=== PATIENT | male | born 1945 | race Caucasian/White ===

== ENCOUNTER 2016-06-14 16:44 | Observation (INO) | payer MEDICARE, BC ==
[2016-06-14] MEDS ORDERED: NS 1,000 ML IV ONE ×3 (17:01→18:34)
--- NOTE | 2016-06-14 17:03 | EDPRACDOC ---
- General Information Chief Complaint: Generalized Weakness Stated Complaint: DIZZY Time Seen by Provider: 06/14/16 17:00 Mode Of Arrival: Car Home Medications: Home Medications Alfuzosin [Uroxatral] 10 mg PO DAILY 11/03/14 Bupropion HCl [Bupropion HCl Sr] 150 mg PO .BID SEE COMMENTS 11/03/14 Cholecalciferol (Vitamin D3) [Vitamin D3] 1,000 unit PO DAILY 11/03/14 Clopidogrel Bisulfate [Plavix] 75 mg PO DAILY 11/03/14 Colesevelam HCl [Welchol] 3 tabs PO BID 11/03/14 MetFORMIN (Immediate Release) [GLUCOPHAGE Immed Release] 1,000 mg PO BID Nebivolol HCl [Bystolic] 5 mg PO DAILY 11/03/14 Pantoprazole Sodium [Protonix] 40 mg PO DAILY 11/03/14 Paroxetine HCl 40 mg PO DAILY 11/03/14 Tamsulosin HCl [Flomax] 0.4 mg PO DAILY 11/03/14 Zolpidem Tartrate 10 mg PO HS 11/03/14 Buspirone HCl 15 mg PO BID 06/14/16 Donepezil HCl 5 mg PO .QHS SEE COMMENTS 06/14/16 Duloxetine HCl [Cymbalta] 60 mg PO .DAILY SEE COMMENTS 06/14/16 Allergies/Adverse Reactions: Allergies Allergy/AdvReac Type Severity Reaction Status Date / Time No Known Allergies Allergy Verified 06/14/16 16:53 - History of Present Illness Onset: 3-4 DAYS Exact Onset of Symptoms: Unknown Symptoms Started: Reports: Gradually, At Rest Symptoms Description: Other (INTERMITTENT, AGG BY STANDING) Weakness: Bilateral: Generalized Symptoms: Reports: Weak Symptom Severity: Reports: Unable to performs ADL's Relevant History of: Denies: O, Anemia, CVA, DM, Electrolyte disorder, GI Bleed , [place], TIA Associated signs and symptoms:: Reports: Diarrhea (MILD LATELY), Nausea, Vomiting (X2 TODAY, ASSOC WITH ANOREXIA). Denies: GI Bleed, Chest pain, Fever, Headache ED Past Medical History - History Reviewed Yes Nurses notes reviewed and agree except as marked - Patient Medical History Neurological History: Reports: Cerebrovascular Accident Cardiac History: Reports: Hypertension, HypercholesterolemiaComment Only: Congestive Heart Failure (stents) GI/ History: Reports: Gastroesophageal Reflux Musculoskeletal History: Reports: Arthritis (ANKYLOSIS SPONDYLYSIS (ADVIL ONLY)) Systemic History: Reports: Diabetes Surgical History: Reports: Appendectomy, Tonsillectomy/Adnoidectomy - Social Medical History Smoking Status: Never smoker ETOH: None Substance Abuse: None Lives With: Family Lives In: Home EDM Review of Systems - Review of Systems ROS Negative Except as Marked: Yes All systems reviewed and were negative except as marked Respiratory: No Symptoms Reported. negative: Shortness of Breath Cardiovascular: No Symptoms Reported. negative: Chest Pain, Edema, Orthopnea, Palpitations Gastrointestinal: Nausea, Vomiting. negative: Diarrhea Neurological: Weakness Musculoskeletal: Back (CHRONIC) - Physical Exam Constitutional: No apparent distress, Alert. negative: Distress, Decreased Consciousness, Well appearing (PALE) Oriented to: Time, Person, Place Last recorded Vital Signs: Last Vital Signs Temp 98.6 F 06/14/16 16:49 Pulse 134 H 06/14/16 16:49 Resp 20 06/14/16 16:49 BP 81/51 L 06/14/16 16:49 Pulse Ox 97 06/14/16 16:49 Oxygen Pulse Oxygen Saturation 97 O2 Device Room Air Oxygen Flow Rate Fraction of Inspired Oxygen ( FIO2) - HEENT Head: Normal ( normocephalic) Eye Exam: Normal (PERRL, EOMI, Sclera white). negative: Pale Conjunctiva, Scleral Icterus Oropharynx: Normal (Pharynx:Moist without exudate,Gums-no swelling). negative: Membranes Dry Tympanic Membrane: Normal ENT EAC: Normal TMJ: Normal Nose: No Symptoms Reported (septum midline) Neck: Normal (FROM, trachea at midline) - Respiratory/Cardiovascular Respiratory: Normal - CTA (BBS clear to auscultation without adventitious sounds ) Cardiovascular: Tachycardia. negative: Irregular, Diastolic murmur, Systolic murmur - GI Auscultation: Normal (NABS) Palpation: Normal (Soft,No rebound or guarding, non distended) Tenderness: Non tender Romo's Sign: Negative - Musculoskeletal Back: Normal (Non-Tender) Extremities: Normal (Normal tone, Pulses 2+ No cyanosis or edema, FROM) - Integumentary Skin: Normal, Warm, Dry Lymphatics: Normal (no adenopathy) - Neurologic Memory Impaired: Normal Motor Function: Normal (Normal tone, Pulses 2+ No cyanosis or edema, FROM) Cranial Nerve: Normal (CN II-X11 intact sensation, strength 5/5) Cerebellar: Normal Mood Description: Normal Thought: Coherent Perception: Normal NIH Stroke Scale Re-evaluation 1 Level of Consciousness: Alert LOC- Question: Answers Both Correctly LOC Commands: Both Task Correctly Best Gaze: Normal Visual: No Visual Loss Facial Palsy: Normal Movement Motor Arm LEFT: No Drift Motor Arm RIGHT: No Drift Motor Leg LEFT: No Drift Motor Leg RIGHT: No Drift Limb Ataxia: Absent Sensory: Normal Best Language: No Aphasia Dysarthria: Normal Extinction and Inattention: No Abnormality (Neglect) Score: 0out of42 - Neurologic Orientation: Time, Person, Place Speech: Fluent Coginitive: Normal Affect: Appropriate Thought: Coherent - Coordination Finger to Nose Test: Normal Performance Alternate Nose to Finger Test: Normal Performance Heel on Keyes Test: Normal Performance - Re-evaluation Re-evaluation 3 Re-evaluation Time: 20:18 (IMPROVED BUT STILL WEAK.) General: Pleasant MALE No acute distress. Neuro: Alert Oriented, calm and cooperative HEENT: Normocephalic atraumatic. Sclerae nonicteric. Extraocular movements intact. Oral mucosa pink and moist. Neck: Supple. Nontender. Good range of motion. No masses. Trachea is midline. No cervical adenopathy. Lungs: Clear to auscultation. No rhonchi or wheezing. Heart: Regular rate and rhythm. No murmur. Abdomen: Soft, nontender, nondistended. No hepatosplenomegaly. No abdominal wall defects or masses. No guarding or rebound. Extremities: no cyanosis clubbing or edema. No palpable deformities. Skin: Warm and dry, no rashes - Results 06/14/16 17:15 06/14/16 17:15 - EKG EKG #1 EKG Time: 17:11 -: Yes EKG interpreted by me Rate: bpm: 100 [place]: Normal Rhythm: ST Block: None Hypertrophy: None ST: Normal Comments: PROLONGED QT Comparison: 08/11/08 (NO SIG CHANGE) - Diagnostic Imaging Chest Image interpreted by: Radiologist Patient Name: CHRISSIE LOVETT LOC: ED : 1945 AGE: 71 Order Date:06/14/16 Date of Service: Report # [id number] Ord Physician: Nydia Doty MD Exam # [id number] Emergency Physician: Nydia Doty MD Exam(s): [id number] RAD/DG CHEST 2V CLINICAL DATA: Shortness of breath EXAM: CHEST 2 VIEW COMPARISON: 08/10/2008 chest radiograph. FINDINGS: Stable cardiomediastinal silhouette with normal heart size. No pneumothorax. No pleural effusion. Lungs appear clear, with no acute consolidative airspace disease and no pulmonary edema. IMPRESSION: No active cardiopulmonary disease. Electronically Signed By: Tyrel Barroso M.D. On: 06/14/2016 18:05 Electronically Signed By: Tyrel Barroso MD Electronically Signed Date/Time: 807 Dictate Date/Time: 06/14/161803 Technologist: Kamilah Willson Transcribed By: Benedict Transcribed Date/Time: 06/14/16 180 - Departure Disposition: Admit IP To This Hospital Final Diagnosis: Attacks of weakness, Lactic acidosis Hypotension Qualifiers: Hypotension type: orthostatic hypotension Qualified Code(s): I95.1 - Orthostatic hypotension UTI (urinary tract infection) Qualifiers: Urinary tract infection type: acute cystitis Hematuria presence: without hematuria Qualified Code(s): N30.00 - Acute cystitis without hematuria Instructions: Weakness (General), Urinary Tract Infection in Men (ED), Dysuria Education/Counseling Given To: Patient, Family Member Education/Counseling Given Regarding: Diagnosis, Treatment, Prognosis Referrals: None,No Provider [NonStaff] - One Week Decision to Admit Time: 20:50 Decision to admit date: 06/14/16 Decision to admit: from ED - Physician Consulted Hospitalist Time Called: 20:40 Provider Called: Sammy Etienne Time Rehabilitation Director Returned Call: 20:49
[2016-06-14 17:31] LABS: AUTOMATED BASOPHIL 0.6 % (0-2); AUTOMATED MONOCYTE 7.2 % (3-10); AUTOMATED NEUTROPHIL 76.2 % (45-76); MPV 7.5 fL (7.4-10.4)
[2016-06-14 17:45] LABS: PARTIAL THROMB. TIME 24.7 SEC (22-35); PT-INR 1.1
[2016-06-14 17:49] LABS: BLOOD UREA NITROGEN 12 MG/DL (9-20); CALCULATED OSMOLALITY 269 MOs/Kg (270-290); CHLORIDE 98 mEq/L (98-107); CPK TOTAL WITH POSSIBLE MB 44 IU/L (55-170); GLUCOSE 93 MG/DL (70-99); SODIUM LEVEL 140 mEq/L (137-146); TOTAL PROTEIN 7.4 G/DL (6.3-8.2)
--- NOTE | 2016-06-14 18:07 | DIRPT ---
CLINICAL DATA: Shortness of breath EXAM: CHEST 2 VIEW COMPARISON: 08/10/2008 chest radiograph. FINDINGS: Stable cardiomediastinal silhouette with normal heart size. No pneumothorax. No pleural effusion. Lungs appear clear, with no acute consolidative airspace disease and no pulmonary edema. IMPRESSION: No active cardiopulmonary disease. Electronically Signed By: Tyrel Barroso M.D. On: 06/14/2016 18:05
[2016-06-14 19:01] LABS: RBC/URINE 0-2 (0-2)
[2016-06-14 19:02] LABS: LEUKOCYTES/URINE NEG (NEGATIVE); NITRITE/URINE NEG (NEGATIVE); URINE OCCULT BLOOD NEG (NEG/TRACE)
[2016-06-14] MEDS ORDERED: CEFTRIAXONE 1 GM in D5W 100 ML IV ONE (20:19)
--- NOTE | 2016-06-14 21:04 | HISTPHYS ---
- Chief Complaint not feeling well - History of Present Illness PRIMARY CARE PROVIDER: Dr. Barone HPI: The patient is a 71 yo man with diabetes, ankylosing spondylitis, hypertension who presents with not feeling well. The patient has been dizzy today, especially when he stands up. Almost fell down. He went to urgent care and was told he had to go to the emergency department because his blood pressure was too low. Sudden vomiting yesterday even though he did not feel sick. Some diarrhea (has it chronically). Onset: today. Duration: intermittent. Location: generalized. Character: lightheadedness, feeling like he was going to pass out. Alleviated by: Nothing. Exacerbated by: Nothing. Associated Symptoms: Chronic intermittent headaches. Essential tremor that is gradually worsening. Started last year. Balance off; felt like he was on a rocking ship. Stands still for awhile and it eases off. Difficulty urinating but ran out of medication and has not had it refilled over the last 2 weeks. Has had decreased PO intake because he is not hungry - has been going on for awhile. Weight loss: went from 190 lbs to 170 lbs over the last 2 years. Early satiety. Treatments: none at home except usual medications. - Medical History Cardiac History: Reports: Coronary Artery Disease, Hypertension, Cardiac Catheterization (2 stents, around 2004), HypercholesterolemiaComment Only: Congestive Heart Failure (stents) GI/ History: Reports: Gastroesophageal Reflux (and chronic diarrhea.) Musculoskeletal History: Reports: Arthritis (ANKYLOSING SPONDYLITIS) Systemic History: Reports: Diabetes Neurological History: Reports: Cerebrovascular Accident (2000. No residual effects. Had slurred speech.), Other Has ankylosing spondylitis. Essential tremor that is gradually worsening. Started last year. - Surgical History Reports: Appendectomy, Tonsillectomy/Adnoidectomy - Medictions/Allergies Allergies No Known Allergies Allergy (Verified 06/14/16 16:53) Current Medication List: Reviewed Home Medications Alfuzosin [Uroxatral] 10 mg PO DAILY 11/03/14 Bupropion HCl [Bupropion HCl Sr] 150 mg PO .BID SEE COMMENTS 11/03/14 Cholecalciferol (Vitamin D3) [Vitamin D3] 1,000 unit PO DAILY 11/03/14 Clopidogrel Bisulfate [Plavix] 75 mg PO DAILY 11/03/14 Colesevelam HCl [Welchol] 3 tabs PO BID 11/03/14 MetFORMIN (Immediate Release) [GLUCOPHAGE Immed Release] 1,000 mg PO BID Nebivolol HCl [Bystolic] 5 mg PO DAILY 11/03/14 Pantoprazole Sodium [Protonix] 40 mg PO DAILY 11/03/14 Paroxetine HCl 40 mg PO DAILY 11/03/14 Tamsulosin HCl [Flomax] 0.4 mg PO DAILY 11/03/14 Zolpidem Tartrate 10 mg PO HS 11/03/14 Buspirone HCl 15 mg PO BID 06/14/16 Donepezil HCl 5 mg PO .QHS SEE COMMENTS 06/14/16 Duloxetine HCl [Cymbalta] 60 mg PO .DAILY SEE COMMENTS 06/14/16 - Family History Reports: Diabetes, Cancer (Sister: melanoma.), Cardiac Disorders (Father: of [place] at 59yo.), Other (Mother of old age. Grandfather, uncle: tremors. No Parkinson's.) - Social History Smoking Status: Never smoker Social History: Denies: Alcohol Use, Substance Use Disorder - Review of Systems GENERAL: No Fever, chills, or diaphoresis. Positive for fatigue/malaise, decreased PO intake, and weight loss. HEENT: No nasal discharge or bleeding. No throat pain or swelling. No eye pain or eye redness. RESPIRATORY: No cough, wheezing, or shortness of breath. CARDIOVASCULAR: No chest pain or palpitations. GI: Early satiety. Nausea, vomiting, and diarrhea. No abdominal pain, constipation, or bloody stool. NEUROLOGICAL: Dizziness. Chronic intermittent headaches. No focal weakness. Has essential tremor. INTEGUMENT: no rashes, itching, or lesions. LYMPHATIC SYSTEM: no lymph node swelling or pain. MUSCULOSKELETAL: no new pain or joint swelling. GENITOURINARY: Difficulty urinating. No dysuria or hematuria. ENDOCRINE: No polyuria or polydipsia. HEME: No chronic anemia, bleeding, or easy bruising. - Physical Exam Vital Signs: Initial Vitals Temperature 98.6 F 06/14/16 16:49 Pulse Rate 134 H 06/14/16 16:49 Respiratory Rate 20 06/14/16 16:49 Blood Pressure 81/51 L 06/14/16 16:49 Pulse Oxygen Saturation 97 06/14/16 16:49 Weight: 75.9 kg Height: 5'7" BMI: 26.2 - Other Exam Other Exam Findings: GENERAL: Ill-appearing, well nourished, in acute distress. HEENT: Normocephalic, atraumatic; pupils equal and round. Nares patent, without discharge or bleeding. No oropharyngeal lesions or erythema. Mucous membranes are dry. NECK: is supple, no masses, trachea midline. RESPIRATORY: Clear to auscultation bilaterally. Chest wall movements are symmetric. No use of accessory muscles to breathe. No wheezing, rales, rhonchi. CARDIOVASCULAR: Normal S1, S2. Murmur 2/6 systolic. No rubs, or gallops. PMI non -displaced. Carotids: no carotid bruits. No bradycardia or tachycardia. DP pulses 1-2+ bilaterally. GI: soft, non-distended, normal active bowel sounds. No hepatosplenomegaly. Mild epigastric tenderness. INTEGUMENT: Clean, dry, and intact. No rashes. No lesions. MUSCULOSKELETAL: Moving all extremities. No cyanosis. No clubbing. Edema: none bilaterally. NEUROLOGICAL: Cranial nerves 2-12 grossly intact. Motor 5/5 throughout. Fine tremor noted. Reflexes: 2+ bilaterally. Babinski: toes downgoing bilaterally. Intact Finger to nose. Sensory grossly intact to light touch. Intact rapid alternating movements bilaterally. No pronator drift. PSYCHIATRIC: Fully oriented. Normal and appropriate affect. LYMPHATIC: No cervical lymphadenopathy. No supraclavicular lymphadenopathy. - Lab Results Laboratory Results - last 24 hr 06/14/16 06/14/16 06/14/16 17:15 17:15 17:15 WBC 9.0 RBC 4.85 Hgb 12.8 L Hct 38.6 L MCV 80 MCH 26.5 L MCHC 33.2 RDW 15.4 H Plt Count 226 MPV 7.5 Neut % (Auto) 76.2 H Lymph % (Auto) 15.0 L Hinds % (Auto) 7.2 Eos % (Auto) 1.0 Baso % (Auto) 0.6 Absolute Neuts (auto) 6.84 Absolute Lymphs (auto) 1.35 PT 11.2 INR 1.1 APTT 24.7 D-Dimer Quant (PE/DVT) Sodium 140 Potassium 3.7 Chloride 98 Carbon Dioxide 25 Anion Gap 21 H BUN 12 Creatinine 1.30 H Estimated GFR (MDRD) 54 L Glucose 93 POC Capillary Glucose Hemoglobin A1c Calculated Osmolality 269 L Lactic Acid Calcium 10.0 Total Bilirubin 0.8 AST 23 ALT 22 Alkaline Phosphatase 87 Creatine Kinase 44 L Troponin I < 0.01 [id number]-Vmtcgvljmrz Pept 656 Total Protein 7.4 Albumin 4.5 Urine Color Urine Clarity Urine pH Ur Specific Hanna Urine Protein Urine Glucose (UA) Urine Ketones Urine Occult Blood Urine Nitrite Urine Bilirubin Urine Urobilinogen Ur Leukocyte Esterase Urine RBC Urine WBC Ur Epithelial Cells Urine Bacteria Hyaline Casts Urine Mucus 06/14/16 06/14/16 06/14/16 17:15 17:15 17:25 WBC RBC Hgb Hct MCV MCH MCHC RDW Plt Count MPV Neut % (Auto) Lymph % (Auto) Hinds % (Auto) Eos % (Auto) Baso % (Auto) Absolute Neuts (auto) Absolute Lymphs (auto) PT INR APTT D-Dimer Quant (PE/DVT) 425 Sodium Potassium Chloride Carbon Dioxide Anion Gap BUN Creatinine Estimated GFR (MDRD) Glucose POC Capillary Glucose Hemoglobin A1c 6.1 H Calculated Osmolality Lactic Acid 5.0 H* Calcium Total Bilirubin AST ALT Alkaline Phosphatase Creatine Kinase Troponin I Rir-H-Vrdzzjoksgc Pept Total Protein Albumin Urine Color Urine Clarity Urine pH Ur Specific Hanna Urine Protein Urine Glucose (UA) Urine Ketones Urine Occult Blood Urine Nitrite Urine Bilirubin Urine Urobilinogen Ur Leukocyte Esterase Urine RBC Urine WBC Ur Epithelial Cells Urine Bacteria Hyaline Casts Urine Mucus 06/14/16 06/14/16 06/14/16 18:44 20:40 21:55 WBC RBC Hgb Hct MCV MCH MCHC RDW Plt Count MPV Neut % (Auto) Lymph % (Auto) Hinds % (Auto) Eos % (Auto) Baso % (Auto) Absolute Neuts (auto) Absolute Lymphs (auto) PT INR APTT D-Dimer Quant (PE/DVT) Sodium Potassium Chloride Carbon Dioxide Anion Gap BUN Creatinine Estimated GFR (MDRD) Glucose POC Capillary Glucose Hemoglobin A1c Calculated Osmolality Lactic Acid 3.9 H Calcium Total Bilirubin AST ALT Alkaline Phosphatase Creatine Kinase Troponin I < 0.01 Jrb-F-Xdyvpzuxyrz Pept Total Protein Albumin Urine Color Dark yellow Urine Clarity Sl cldy Urine pH 5.0 Ur Specific Hanna 1.015 Urine Protein Trace Urine Glucose (UA) Neg Urine Ketones Neg Urine Occult Blood Neg Urine Nitrite Neg Urine Bilirubin Neg Urine Urobilinogen 0.2 Ur Leukocyte Esterase Neg Urine RBC 0-2 Urine WBC 2-5 H Ur Epithelial Cells Occ Urine Bacteria Few Hyaline Casts 10-20 H Urine Mucus Sm amt 06/14/16 06/14/16 22:39 22:50 WBC RBC Hgb Hct MCV MCH MCHC RDW Plt Count MPV Neut % (Auto) Lymph % (Auto) Hinds % (Auto) Eos % (Auto) Baso % (Auto) Absolute Neuts (auto) Absolute Lymphs (auto) PT INR APTT D-Dimer Quant (PE/DVT) Sodium Potassium Chloride Carbon Dioxide Anion Gap BUN Creatinine Estimated GFR (MDRD) Glucose POC Capillary Glucose 81 Hemoglobin A1c Calculated Osmolality Lactic Acid Calcium Total Bilirubin AST ALT Alkaline Phosphatase Creatine Kinase Troponin I < 0.01 Mxn-X-Xlexawkdsym Pept Total Protein Albumin Urine Color Urine Clarity Urine pH Ur Specific Hanna Urine Protein Urine Glucose (UA) Urine Ketones Urine Occult Blood Urine Nitrite Urine Bilirubin Urine Urobilinogen Ur Leukocyte Esterase Urine RBC Urine WBC Ur Epithelial Cells Urine Bacteria Hyaline Casts Urine Mucus - Diagnostic Findings EKG 06/14/16 at 1601 at Urgent Care: 125 bpm. Sinus tachycardia with multifocal PVCs. Lateral ST changes. ST depression in leads V4, V5, and V6. Reviewed EKG personally. EKG 06/14/16 at 1711 at the Emergency Department: 100 bpm. Sinus rhythm with frequent PVCs. ST depressions in V4, V5, and V6 from earlier EKG have resolved. Reviewed EKG personally. Chest x-ray, viewed personally: EXAM: CHEST 2 VIEW COMPARISON: 08/10/2008 chest radiograph. FINDINGS: Stable cardiomediastinal silhouette with normal heart size. No pneumothorax. No pleural effusion. Lungs appear clear, with no acute consolidative airspace disease and no pulmonary edema. IMPRESSION: No active cardiopulmonary disease. - Assessment (1) Hypotension I95.9 - HYPOTENSION, UNSPECIFIED Acute Qualifiers: Hypotension type: orthostatic hypotension Trimester: T Qualified Code(s) : I95.1 - Orthostatic hypotension May be due to volume depletion. Improving with IVF in the ED. Plan: Continue IVFs. Monitor blood pressures. Telemetry. (2) Lactic acidosis E87.2 - ACIDOSIS Acute Present on Admission: Yes Elevated Lactic acid level of unclear etiology. Plan: Cultures ordered. Monitor. (3) Dizziness R42 - DIZZINESS AND GIDDINESS Acute Present on Admission: Yes May be due to hypotension. Plan: IVFs. If no improvement then consider further evaluation. (4) Abnormal urinalysis R82.90 - UNSPECIFIED ABNORMAL FINDINGS IN URINE Acute Present on Admission: Yes Possible UTI. Plan: Cultures. Empiric IV ceftriaxone. (5) Early satiety R68.81 - EARLY SATIETY Acute Present on Admission: Yes Subacute issue. Recommended outpatient workup. (6) Ankylosing spondylitis M45.9 - ANKYLOSING SPONDYLITIS OF UNSPECIFIED SITES IN SPINE Chronic Present on Admission: Yes Chronic. Plan: PRN medications for pain if needed. Case Care Discussed with: Patient, Nursing Staff
[2016-06-14] MEDS ORDERED: GLUCOSE (ORAL GEL) 15 GM TUBE PO PRN (22:39)
[2016-06-14] MEDS ORDERED: ACETAMINOPHEN 325 MG/TAB TABLET PO PRN (22:39)
[2016-06-14] MEDS ORDERED: ACETAMINOPHEN 325 MG SUPP PR PRN (22:39)
[2016-06-14] MEDS ORDERED: Docusate Sodium 100 MG CAP PO PRN (22:39)
[2016-06-14] MEDS ORDERED: BENZONATATE 100 MG PERLES PO PRN (22:39)
[2016-06-14] MEDS ORDERED: SENNA CONCENTRATE TAB PO PRN (22:39)
[2016-06-14] MEDS ORDERED: ONDANSETRON HCL 4 MG/2 ML VIAL IV PRN (22:39)
[2016-06-14] MEDS ORDERED: PROMETHAZINE 25 MG/ML VIAL IV PRN (22:39)
[2016-06-14] MEDS ORDERED: DEXTROSE 25 GM/50 ML PFS IV PRN (22:39)
[2016-06-14] MEDS ORDERED: SIMETHICONE 80 MG TAB PO PRN (22:39)
[2016-06-14] MEDS ORDERED: BISACODYL 5 MG TAB PO PRN (22:39)
[2016-06-14] MEDS ORDERED: GLUCAGON 1 MG VIAL SQ PRN (22:39)
[2016-06-14] MEDS ORDERED: GUAIFEN 100 MG-DEXTROMETH 10 MG PER 5 ML PO PRN (22:39)
[2016-06-14] MEDS ORDERED: Non-Formulary Medication ITEM (Buspirone Hcl [Buspirone Hcl] 15 MG) PO SCH (22:45)
[2016-06-14] MEDS ORDERED: ZOLPIDEM TARTRATE 5 MG PO SCH (22:45)
[2016-06-14] MEDS ORDERED: BUPROPION HCL 150 MG PO SCH (22:45)
[2016-06-14] MEDS: NS 1,000 ML IV SCH ×2 (22:55→22:56)
[2016-06-14] MEDS ORDERED: ZOLPIDEM TARTRATE 5 MG TAB PO ONE (23:00)
[2016-06-14] MEDS ORDERED: DONEPEZIL HCL 5 MG TAB PO SCH (23:00)
[2016-06-14] MEDS ORDERED: Vaccine Screening Complete SCH (23:00)
[2016-06-14] MEDS ORDERED: ENOXAPARIN 40 MG/0.4 ML PFS SQ SCH (23:00)
[2016-06-14] MEDS: BUSPIRONE 5 MG TAB PO SCH (23:15)
[2016-06-14] MEDS: COLESEVELAM HCL 625 MG TAB PO SCH (23:16)
[2016-06-15 02:38] VITALS: BMI 26.2
[2016-06-15] MEDS: NS 1,000 ML IV SCH ×2 (03:53→08:12)
[2016-06-15 03:56] LABS: MPV 7.6 fL (7.4-10.4)
[2016-06-15 04:09] LABS: BLOOD UREA NITROGEN 12 MG/DL (9-20); CALCIUM 9.1 MG/DL (8.4-10.2); CALCULATED OSMOLALITY 274 MOs/Kg (270-290); CHLORIDE 104 mEq/L (98-107); GLUCOSE 120 MG/DL (70-99); SODIUM LEVEL 142 mEq/L (137-146)
[2016-06-15] MEDS ORDERED: PANTOPRAZOLE 40 MG TAB PO SCH (06:00)
[2016-06-15] MEDS ORDERED: REGULAR INSULIN 100 UNITS/ML - 3 ML VIAL SQ SCH (07:00)
[2016-06-15] MEDS: BUSPIRONE 5 MG TAB PO SCH (08:13)
[2016-06-15] MEDS: COLESEVELAM HCL 625 MG TAB PO SCH (08:16)
[2016-06-15 08:22] VITALS: BP 158/80; TEMP 97.9
--- NOTE | 2016-06-15 08:51 | PCM.DCS92 ---
- Final/Secondary Discharge Diagnosis (1) Hypotension Acute I95.9 - HYPOTENSION, UNSPECIFIED orthostatic hypotension T I95.1 - Orthostatic hypotension Comment: May be due to volume depletion. Improving with IVF in the ED. Plan: Continue IVFs. Monitor blood pressures. Telemetry. (2) Abnormal urinalysis Acute R82.90 - UNSPECIFIED ABNORMAL FINDINGS IN URINE Present on Admission: Yes Comment: He has very few white blood cells, but has some hyaline casts. His urinalysis is consistent with dehydration. (3) Attacks of weakness Acute Plan/Goal/Comment: Likely due to hypotension from dehydration. (4) Dizziness Acute R42 - DIZZINESS AND GIDDINESS Present on Admission: Yes Comment: May be due to hypotension. Plan: IVFs. If no improvement then consider further evaluation. (5) Lactic acidosis Acute E87.2 - ACIDOSIS Present on Admission: Yes Comment: Elevated Lactic acid level of unclear etiology. Plan: Cultures ordered. Monitor. Discharge Disposition: Home Cognitive Discharge Status: Unimpaired Fuctional Discharge Status: Independent Physician Follow up/Referrals: None,No Provider [NonStaff] - One Week Home Medications / New Prescriptions: Continue Cholecalciferol (Vitamin D3) [Vitamin D3] 1,000 unit PO DAILY Colesevelam HCl [Welchol] 3 tabs PO BID Pantoprazole Sodium [Protonix] 40 mg PO DAILY MetFORMIN (Immediate Release) [GLUCOPHAGE Immed Release] 1,000 mg PO BID Bupropion HCl [Bupropion HCl Sr] 150 mg PO .BID SEE COMMENTS Alfuzosin [Uroxatral] 10 mg PO DAILY Zolpidem Tartrate 10 mg PO HS Nebivolol HCl [Bystolic] 5 mg PO DAILY Paroxetine HCl 40 mg PO DAILY Clopidogrel Bisulfate [Plavix] 75 mg PO DAILY Duloxetine HCl [Cymbalta] 60 mg PO .DAILY SEE COMMENTS Donepezil HCl 5 mg PO .QHS SEE COMMENTS Buspirone HCl 15 mg PO BID Tamsulosin HCl [Flomax] 0.4 mg PO DAILY #30 capsule O2 Device: Room Air Diet at Discharge: Diabetic Activity: No Restrictions Call Office For: Worsening Symptoms - DC Summary Notes HPI/Notes: This is a pleasant 71-year-old male who was admitted to the hospital with acute kidney injury, hypotension and orthostatics. He is given copious IV fluids overnight, he is feeling well today with normalized renal function, and is ready to go home today. He was initially treated with IV Rocephin due to concern for urinary tract infection, however, besides some urinary retention which she has a history of, the patient does not complain of any dysuria, urgency or frequency of urination or any fevers or chills. He ran out of his Flomax a couple of weeks ago. This medication has been refilled, and the patient is ready for discharge home today off of antibiotics as his urinalysis is also not indicative of infection. Please see the hospital problems and discharge problems above for details of the hospital course including diagnostics and treatment. The plan of care including medications, prognosis, follow-up including alarm symptoms for which medical care should be sought were reviewed with the patient and any available family members/caretakers. The patient is agreeable to discharge today, and all questions were answered by me to their satisfaction. Hospital Course Note:: Discharge summary on patient named CHRISSIE LOVETT admitted to [facility] on 06/14/16 by Sammy Etienne MD. Date of discharge is []. - Physical Exam Vital Signs: Last Vital Signs Temp 97.9 F 06/15/16 08:22 Pulse 75 06/15/16 08:22 Resp 20 06/15/16 08:22 BP 158/80 06/15/16 08:22 Pulse Ox 95 06/15/16 08:22 Oxygen Pulse Oxygen Saturation 95 O2 Device Room Air Oxygen Flow Rate Fraction of Inspired Oxygen ( FIO2) Constitutional: No apparent distress, Alert. negative: Distress, Decreased Consciousness, Well appearing (PALE) Oriented to: Time, Person, Place Exam: Resting comfortably in bed this morning having breakfast. - HEENT Head: Normal ( normocephalic) Eye: Normal (PERRL, EOMI, Sclera white). negative: Pale Conjunctiva, Scleral Icterus Oropharynx: Normal (Pharynx:Moist without exudate,Gums-no swelling). negative: Membranes Dry Tympanic Membrane: Normal ENT EAC: Normal TMJ: Normal Nose: No Symptoms Reported (septum midline) - Respiratory/Cardiovascular Respiratory: Normal - CTA (BBS clear to auscultation without adventitious sounds ) Cardiovascular: Normal. negative: Irregular, Diastolic murmur, Systolic murmur - GI Auscultation: Normal (NABS) Palpation: Normal (Soft,No rebound or guarding, non distended) Tenderness: Non tender Romo's Sign: Negative - Musculoskeletal Back: Normal (Non-Tender) Extremities: Normal (Normal tone, Pulses 2+ No cyanosis or edema, FROM) - Integumentary Skin: Normal, Warm, Dry Lymphatics: Normal (no adenopathy) - Neurologic Memory Impaired: Normal Cerebellar: Normal Mood Description: Appropriate Thought: Coherent Perception: Normal
[2016-06-15] MEDS ORDERED: TAMSULOSIN HCL 0.4 MG CAP PO SCH (09:00)
[2016-06-15] MEDS ORDERED: DULOXETINE 60 MG CAPSULE PO SCH (09:00)
[2016-06-15] MEDS ORDERED: Non-Formulary Medication ITEM (Cholecalciferol (Vitamin D3) [Vitamin D3] 1,000 UNIT) PO SCH (09:00)
[2016-06-15] MEDS ORDERED: CLOPIDOGREL 75 MG TAB PO SCH (09:00)
[2016-06-15] MEDS ORDERED: BuPROPion 150 MG SR TAB PO SCH (09:00)
[2016-06-15] MEDS ORDERED: NEBIVOLOL HCL 5 MG PO SCH (09:00)
[2016-06-15] MEDS ORDERED: PAROXETINE HCL 40 MG PO SCH (09:00)
[2016-06-15] MEDS ORDERED: NEBIVOLOL HCL 10 MG TAB PO SCH (09:00)
[2016-06-15] MEDS ORDERED: PAROXETINE 20 MG TAB PO SCH (09:00)
[2016-06-15] MEDS ORDERED: ALFUZOSIN 10 MG PO SCH (09:00)
[2016-06-15 10:04] VITALS: PULSE 98
[2016-06-15] MEDS ORDERED: CHOLECALCIFEROL 1000 UNITS TAB PO SCH (12:00)
[2016-06-15] MEDS ORDERED: CEFTRIAXONE 1 GM in D5W 100 ML IV SCH (20:00)
[2016-06-15] MEDS ORDERED: ZOLPIDEM TARTRATE 5 MG TAB PO SCH (21:00)
== END 2016-06-15 10:44 | disposition home or self-care (01) ==
LOC: ED 16:44 → PCU 21:03
PROVIDERS: ADMIT Internal Medicine; ATTEND Internal Medicine
DX: I95.9 Hypotension, unspecified (principal); R82.90 Unspecified abnormal findings in urine; R53.1 Weakness; R42 Dizziness and giddiness; E87.2 Acidosis; N17.9 Acute kidney failure, unspecified; R68.81 Early satiety; M45.9 Ankylosing spondylitis of unspecified sites in spine; I25.10 Atherosclerotic heart disease of native coronary artery without angina pectoris; I10 Essential (primary) hypertension; E78.00 Pure hypercholesterolemia, unspecified; K21.9 Gastro-esophageal reflux disease without esophagitis; E11.9 Type 2 diabetes mellitus without complications; G25.0 Essential tremor; Z86.73 Personal history of transient ischemic attack (TIA), and cerebral infarction without residual deficits; Z79.899 Other long term (current) drug therapy
CPT/HCPCS: 36415; 71020; 80048; 80053; 81001; 82043; 82550; 82962; 83036; 83605; 83880; 84484; 85025; 85027; 85379; 85610; 85730; 87040; 87086; 93005; 96361; 96365; 96372; 97161; 99284; A9270; G0378; G8978; G8979; G8980; J0696; J1650; J7060; J3490